=== PATIENT | male | born 1990 | race Caucasian/White ===

== ENCOUNTER 2019-11-12 13:38 | Emergency (ER) | payer SELFPAY ==
[~2019-11-12] VITALS: Ht 180.3 cm; Wt 95.2 kg
[2019-11-12 14:18] LABS: BASOPHILS ABSOLUTE AUTO 0.04 K/mm3 (0.00-0.23); BASOPHILS PERCENT AUTO 0 % (0-2); EOSINOPHILS ABSOLUTE AUTO 0.03 K/mm3 (0.00-0.68); EOSINOPHILS PERCENT AUTO 0 % (0-6); Hematocrit 42.1 % (37.0-53.0); Hemoglobin 14.8 g/dL (13.5-17.5); IMMATURE GRAN ABSOLUTE AUTO 0.04 K/mm3 (0.00-0.10); IMMATURE GRAN PERCENT AUTO 0 % (0-1); LYMPHOCYTES ABSOLUTE AUTO 2.14 K/mm3 (0.84-5.20); LYMPHOCYTES PERCENT AUTO 18 % (21-46); MONOCYTES ABSOLUTE AUTO 0.63 K/mm3 (0.16-1.47); MONOCYTES PERCENT AUTO 5 % (4-13); Mean Corpuscular HGB 30.5 pg (26.0-34.0); Mean Corpuscular HGB Conc 35.2 g/dL (31.5-36.5); Mean Corpuscular Volume 87 fL (80-100); Mean Platelet Volume 11.5 fL (9.1-12.4); NEUTROPHILS ABSOLUTE AUTO 9.23 K/mm3 (1.96-9.15); NEUTROPHILS PERCENT AUTO 76 % (41-73); Platelet Count 170 K/mm3 (150-400); RDW Coefficient Variation 11.9 % (11.7-14.2); RDW Standard Deviation 38.3 fL (35.1-46.3); Red Blood Cell Count 4.86 M/mm3 (4.30-5.90); White Blood Cell Count 12.11 K/mm3 (4.00-11.30)
[2019-11-12 14:52] LABS: Alanine Aminotransfer (ALT/SGP 43 U/L (12-78); Albumin, Blood 4.1 g/dL (3.4-5.0); Albumin/Globulin Ratio 1.3 (0.8-1.8); Alk Phos 77 U/L (50-136); Anion Gap 11 mmol/L (6-16); Aspartate Aminotrans (AST/SGOT 33 U/L (12-37); Bilirubin, Total 1.1 mg/dL (0.1-1.0); Blood Urea Nitrogen 18 mg/dL (8-24); Bun/Creatinine Ratio 21.8 (12.0-20.0); CO2, Blood 20 mmol/L (21-32); Calcium, Blood 8.8 mg/dL (8.5-10.1); Chloride, Blood 105 mmol/L (98-108); Creatinine, Blood 0.83 mg/dL (0.60-1.20); Globulin, Blood 3.1 g/dL (2.2-4.0); Glomerular Filtration Rate >60 (60-); Glucose, Blood 138 mg/dL (70-99); Potassium, Blood 3.3 mmol/L (3.5-5.5); Sodium, Blood 136 mmol/L (136-145); Total Protein, Blood 7.2 g/dL (6.4-8.2)
[2019-11-12 15:53] LABS: Ethanol (Alcohol), Blood, Med 5 mg/dL
[2019-11-12] MEDS ORDERED: Zofran4 MG PO (16:23)
[2019-11-13] MEDS ORDERED: Ativan1 MG SL (09:45)
== END 2019-11-12 16:42 | disposition home or self-care (01) ==
LOC: ER 13:38
PROVIDERS: Emergency Medicine; Physician Assistant
DX: E86.0 Dehydration (principal); R11.2 Nausea with vomiting, unspecified; F17.210 Nicotine dependence, cigarettes, uncomplicated; X01.1XXA Exposure to smoke in uncontrolled fire, not in building or structure, initial encounter
CPT/HCPCS: 36415; 80053; 83605; 83690; 84145; 85025; 93005; 93010; 96360; 96361; 99284-25; G0480; J2405; J7030

== ENCOUNTER 2019-11-13 08:03 | Emergency (ER) | payer OTHER ==
[~2019-11-13] VITALS: Ht 177.8 cm; Wt 97.5 kg
[~2019-11-13 08:03] MED LIST: Zofran4 MG PO
[2019-11-13 08:35] LABS: Calcium, Ionized (POC) 1.09 mmol/L (1.10-1.46); Chloride (POC) 104 mmol/L (98-108); Creatinine (POC) 0.8 mg/dL (0.8-1.3); Glucose (ISTAT POC) 122 mg/dL (70-99); Hemoglobin (POC) 15.3 g/dL (13.5-17.5); Potassium (POC) 3.8 mmol/L (3.5-5.5); Sodium (POC) 136 mmol/L (135-148); Total CO2 (POC) 19 mmol/L (21-32)
[2019-11-13 08:41] LABS: Base Excess Venous -3.6 mmol/L; PCO2 Venous 24.9 mmHg (38-42); PO2 Venous 161 mmHg (38-42)
[2019-11-13] MEDS ORDERED: Ativan1 MG SL (09:45)
== END 2019-11-13 09:54 | disposition home or self-care (01) ==
LOC: ER 08:03
PROVIDERS: Emergency Medicine
DX: R20.2 Paresthesia of skin (principal); R06.4 Hyperventilation; F41.9 Anxiety disorder, unspecified; F43.9 Reaction to severe stress, unspecified; F17.210 Nicotine dependence, cigarettes, uncomplicated
CPT/HCPCS: 36415; 80047; 82803; 85014; 96374; 99284-25; J2060

== ENCOUNTER 2021-10-11 08:54 | Emergency (ER) | payer OTHER ==
[~2021-10-11] VITALS: Ht 177.8 cm; Wt 95.2 kg
[~2021-10-11 08:54] MED LIST changes: +Ativan1 MG SL
== END 2021-10-11 10:46 | disposition home or self-care (01) ==
LOC: ER 08:54
DX: R07.9 Chest pain, unspecified (principal); R42 Dizziness and giddiness; F17.210 Nicotine dependence, cigarettes, uncomplicated
CPT/HCPCS: 71046; 93005; 93010

== ENCOUNTER 2023-01-12 19:57 | Emergency (ER) | payer OTHER ==
[~2023-01-12] VITALS: Ht 177.8 cm; Wt 95.2 kg
[~2023-01-12 19:57] MED LIST changes: +Flonase 0.05% N16 GM; +LORA10ER PO
[2023-01-12 20:49] VITALS: BP 178/93
[2023-01-12] MEDS ORDERED: SULTRIDS PO (21:41)
[2023-01-12] MEDS ORDERED: AMOX-CLAV 875-1 EAC5 PO (21:41)
[2023-01-12] MEDS ORDERED: ATIVAN0.5 MG PO (21:42)
== END 2023-01-12 23:10 | disposition home or self-care (01) ==
LOC: ER 19:57
DX: R00.2 Palpitations (principal); Z79.899 Other long term (current) drug therapy; F17.210 Nicotine dependence, cigarettes, uncomplicated
CPT/HCPCS: 93005; 93010; 99284-25